=== PATIENT | female | born 1995 | race Caucasian/White ===

== ENCOUNTER 2016-11-11 14:49 | Emergency (ER) | payer MEDICAID, OTHER ==
[2016-11-11] MEDS ORDERED: Sodium Chloride 0.9% 1,000 ML IV ONE ×2 (15:50→18:13)
--- NOTE | 2016-11-11 16:01 | C.PDOC ---
History Of Present Illness 21 yo female c/o 15 days of vaginal bleeding, 2-3 maxi pads per with occasional small clots. pt normally has menses for 4=5 days. pt had neg preg test at home 3 days ago. pt c/o lower abdominal cramping, and feeling lightheaded for the last few days, denies cp and sob. denies urinary complaints. Time Seen by Provider: 11/11/16 15:42 Chief Complaint (Nursing): Female Genitourinary History Per: Patient History/Exam Limitations: no limitations Onset/Duration Of Symptoms: Days (15) Current Symptoms Are (Timing): Still Present Severity: Moderate Location Of Pain/Discomfort: Other (lower abomen) Associated Symptoms: Diarrhea. denies: Fever, Chills, Nausea, Vomiting, Urinary Symptoms Past Medical History Reviewed: Historical Data, Nursing Documentation, Vital Signs Vital Signs: Last Vital Signs Temp 97.9 F 11/11/16 19:23 Pulse 83 11/11/16 19:23 Resp 18 11/11/16 19:23 BP 127/85 11/11/16 19:23 Pulse Ox 98 11/11/16 20:02 - Medical History PMH: No Chronic Diseases Surgical History: No Surg Hx Family History: States: Unknown Family Hx - Social History Hx Tobacco Use: No Hx Alcohol Use: No Hx Substance Use: No - Immunization History Hx Tetanus Toxoid Vaccination: No Hx Influenza Vaccination: No Hx Pneumococcal Vaccination: No Review Of Systems Constitutional: Negative for: Fever, Chills Cardiovascular: Positive for: Light Headedness. Negative for: Chest Pain Respiratory: Negative for: Shortness of Breath Gastrointestinal: Positive for: Abdominal Pain, Diarrhea. Negative for: Nausea , Vomiting, Constipation Genitourinary: Positive for: Vaginal Bleeding, Pelvic Pain. Negative for: Dysuria, Frequency Neurological: Negative for: Weakness, Numbness Physical Exam - Physical Exam Appears: Non-toxic, No Acute Distress Skin: Normal Color, Warm, Dry Head: Atraumatic, Normacephalic Cardiovascular: Rhythm Regular, Other (tachycardic) Respiratory: Normal Breath Sounds, No Rales, No Rhonchi, No Stridor, No Wheezing Gastrointestinal/Abdominal: Bowel Sounds, Soft, Tenderness (suprapubic area) Neurological/Psych: Oriented x3, Normal Speech, Normal Cognition, Normal Motor, Normal Sensation ED Course And Treatment - Laboratory Results Result Diagrams: 11/11/16 16:05 11/11/16 16:05 O2 Sat by Pulse Oximetry: 98 Medical Decision Making Medical Decision Making: vag bleed with lightheaded and tachycardic - check ucg; if positive, get t and s, transvaginal sono dub- give ivf, check h/h _ 805 pm pt found to have elevated glucose on her chem 7; no hx of diabetes. pt not ketotic, not acidotic, wiht normal anion gap. pt hydrated. pt feeling better now. 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 with rx for 2 weeks metformin. pt understands and agrees to plan. Disposition Counseled Patient/Family Regarding: Studies Performed, Diagnosis, Need For Followup, Rx Given - Disposition Disposition: HOME/ ROUTINE Disposition Time: 20:07 Condition: IMPROVED Additional Instructions: Take metformin after meals twice a day. Follow up with medical clinic on Monday for blood sugar check and evaluation. Follow up with gynecology for evaluation of abnormal vaginal bleeding. Return to ER for any worsening synmptoms. Prescriptions: MetFORMIN [glucOPHAGE] 500 mg PO BID #28 tab Forms: General Discharge Instructions - Clinical Impression Clinical Impression: New onset type 2 diabetes mellitus, Dysfunctional uterine bleeding
[2016-11-11] MEDS ORDERED: Sodium Chloride 0.9% 1,000 ML ONE (16:03)
[2016-11-11 16:13] LABS: BASO # 0.1 K/uL (0.0-0.2); BASO % 0.7 % (0.0-2.0); EOS % 0.2 % (0.0-4.0); HEMATOCRIT 46.4 % (34.0-47.0); LYMPH # 2.9 K/uL (1.0-4.3); LYMPH % 31.1 % (20.0-40.0); MEAN CELL VOLUME 86.6 fL (81.0-99.0); MEAN CORPUSCULAR HEMOGLOBIN 29.7 pg (27.0-31.0); MEAN CORPUSCULAR HGB CONC 34.3 g/dL (33.0-37.0); MEAN PLATELET VOLUME 8.4 fL (7.2-11.7); MONO # 0.4 K/uL (0.0-0.8); MONO % 4.4 % (0.0-10.0); NRBC % 0.1 % (0.0-2.0); RED CELL DISTRIBUTION WIDTH 12.7 % (11.5-14.5); WHITE BLOOD COUNT 9.3 K/uL (4.8-10.8)
[2016-11-11 16:20] LABS: CHLORIDE 101 mmol/L (98-107); SODIUM 136 mmol/L (132-148)
[2016-11-11 16:21] LABS: POTASSIUM 3.8 mmol/L (3.6-5.2)
[2016-11-11 16:23] LABS: ALKALINE PHOSPHATASE 104 U/L (38-126); ALT/SGPT 22 U/L (9-52); AST/SGOT 24 U/L (14-36); BILIRUBIN,TOTAL 1.2 mg/dL (0.2-1.3); BLOOD UREA NITROGEN 8 mg/dL (7-17); CARBON DIOXIDE 22 mmol/L (22-30); GFR AFRICAN-AMERICAN > 60; GLUCOSE,RANDOM 331 mg/dL (65-105); TOTAL PROTEIN 8.2 g/dL (6.3-8.3)
[2016-11-11 16:24] LABS: ALB/GLOB RATIO 1.1 (1.0-2.1)
[2016-11-11 16:27] LABS: RBC URINE 7 /hpf (0-3); URINE BACTERIA RARE (<OCC); URINE BILIRUBIN NEGATIVE (NEGATIVE); URINE COLOR Yellow (YELLOW); URINE GLUCOSE (UA) 3+ mg/dL (Normal); URINE KETONE TRACE mg/dL (NEGATIVE); URINE LEUKOCYTE ESTERASE NEG Leu/uL (Negative); URINE PROTEIN NEGATIVE (NEGATIVE); URINE UROBILINOGEN NORMAL mg/dL (0.2-1.0); WBC URINE 2 /hpf (0-5)
[2016-11-11 16:34] LABS: URINE BLOOD 1+ (NEGATIVE)
[2016-11-11 17:09] LABS: VENOUS BLOOD GAS BASE EXCESS -1.1 mmol/L (0.0-2.0); VENOUS BLOOD GAS PCO2 45 mmHg (40-60); VENOUS BLOOD PH 7.35 (7.32-7.43)
[2016-11-11 19:24] VITALS: RESP 18
[2016-11-11 20:23] VITALS: BP 132/82; PULSE 99; TEMP 98.3; O2SAT 100
== END 2016-11-11 20:22 | disposition home or self-care (01) ==
LOC: C.ER 14:49
DX: N93.8 Other specified abnormal uterine and vaginal bleeding (principal); E11.9 Type 2 diabetes mellitus without complications